=== PATIENT | female | born 1960 | race Caucasian/White ===

== ENCOUNTER 2017-05-28 08:13 | Emergency (ER) | payer OTHER ==
[2017-05-28] MEDS ORDERED: TORAdol 30 mg Injection IV ONE (09:10)
[2017-05-28] MEDS ORDERED: Pepcid 20 MG VIAL IV ONE ×2 (09:10→09:22)
--- NOTE | 2017-05-28 09:10 | ERPHSYRPT ---
- History of Present Illness Time Seen by Provider: 05/28/17 09:00 Historian: patient Exam Limitations: no limitations Patient Subjective Stated Complaint: chest pain at started last night at 2130 and states she woke up with chest still hurting this morning, pain is to epigastric area not radiating now but has radiated to neck and left are, some sob, no nausea. Triage Nursing Assessment: pt alert, walked in, resp easy, chest clear . no edema noted, skin w/d pink Physician History: The patient is a morbidly obese 57-year-old female who complains of worsening chest pain that began on Sunday (3 days ago). She denies shortness of breath. She denies nausea or vomiting. The chest pain had been intermittent for the first day but it has become more steady since yesterday. It hurts when she moves her arms straight up over her head. The pain is located in the lower middle part of her chest. She also has some pain in her left shoulder and left thumb. Her past medical history is significant for diabetes, depression, GERD, hypothyroidism, and hypertension. Her past surgical history is significant for cholecystectomy. Timing/Duration: day(s) (3), intermittent, worse Activities at Onset: none Quality: sharpness Location: substernal Chest Pain Radiation: no radiation Severity of Pain-Max: moderate Severity of Pain-Current: moderate Modifying Factors: Improves With: nothing Associated Symptoms: denies symptoms Prior Chest Pain/Cardiac Workup: no prior chest pain Nitro Today/Relief: no nitro taken today Aspirin Treatment Today: 325 mg x 1, provided at home (yesterday) Allergies/Adverse Reactions: Penicillins Allergy (Verified 05/28/17 08:24) Home Medications: Hydrochlorothiazide 12.5 mg PO DAILY 05/12/12 [History] Levothyroxine Sodium 50 mcg PO DAILY 05/12/12 [History] Loratadine 10 mg DAILY 05/12/12 [History] Venlafaxine HCl ER 75 mg [Effexor XR 75 MG] 225 mg PO DAILY 05/12/12 [History ] Metformin HCl 500 mg BID 05/28/17 [History] Naproxen 500 mg [Naprosyn 500 MG] 500 mg PO Q12H PRN PRN 05/28/17 [History] Hx Influenza Vaccination/Date Given: No Hx Pneumococcal Vaccination/Date Given: No Immunizations Up to Date: Yes - Review of Systems Constitutional: No Fever, No Chills Eyes: No Symptoms Ears, Nose, & Throat: No Symptoms Respiratory: No Cough, No Dyspnea Cardiac: Chest Pain Abdominal/Gastrointestinal: No Abdominal Pain, No Nausea, No Vomiting, No Diarrhea Genitourinary Symptoms: No Dysuria Musculoskeletal: No Back Pain, No Neck Pain Skin: No Rash Neurological: No Dizziness, No Focal Weakness, No Sensory Changes Psychological: No Symptoms Endocrine: No Symptoms Hematologic/Lymphatic: No Symptoms Immunological/Allergic: No Symptoms All Other Systems: Reviewed and Negative - Past Medical History Pertinent Past Medical History: Yes Neurological History: No Pertinent History ENT History: No Pertinent History Cardiac History: Hypertension Respiratory History: No Pertinent History Endocrine Medical History: Hypothyroidism Musculoskeletal History: No Pertinent History GI Medical History: No Pertinent History History: No Pertinent History Psycho-Social History: Depression Female Reproductive Disorders: No Pertinent History - Past Surgical History Past Surgical History: Yes Cardiac: No Pertinent History Respiratory: No Pertinent History Gastrointestinal: Cholecystectomy Other Surgical History: nose surgery - Social History Smoking Status: Never smoker Exposure to second hand smoke: No Drug Use: none Patient Lives Alone: No - Female History Hx Last Menstrual Period: post Hx Now: No - Nursing Vital Signs Nursing Vital Signs: Initial Vital Signs Temperature 97.8 F 05/28/17 08:22 Pulse Rate 78 05/28/17 08:22 Respiratory Rate 18 05/28/17 08:22 Blood Pressure 145/85 05/28/17 08:22 O2 Sat by Pulse Oximetry 98 05/28/17 08:22 Pain Scale Pain Intensity 10 - Physical Exam General Appearance: no apparent distress, alert Eye Exam: PERRL/EOMI, eyes nml inspection Ears, Nose, Throat Exam: normal ENT inspection, moist mucous membranes Neck Exam: normal inspection, non-tender, supple, full range of motion Respiratory Exam: normal breath sounds, chest tenderness (palpation of lower sternum reproduces pt's pain), lungs clear, No respiratory distress Cardiovascular Exam: regular rate/rhythm, normal heart sounds Gastrointestinal/Abdomen Exam: soft, No tenderness, No mass Pelvic Exam: not done Rectal Exam: not done Back Exam: normal inspection, No CVA tenderness, No vertebral tenderness Extremity Exam: normal inspection, normal range of motion Neurologic Exam: alert, oriented x 3, cooperative, normal mood/affect, sensation nml, No motor deficits Skin Exam: normal color, warm, dry SpO2 Interpretation: normal SpO2: 98 Oxygen Delivery: Room Air - Course EKG Interpreted by Me: RATE, Sinus Rhythm, NORMAL AXIS, NORMAL INTERVALS, NORMAL QRS, NORMAL ST-T, Other (no change compared to EKG on 05/13/12.) - Radiology Exams Chest X-ray Interpretation: Negative (Per Dr Whittaker.) Ordered Tests: Active Orders 24 hr Category Date Time Status EKG-ER Only STAT Care 05/28/17 09:10 Active IV Insertion STAT Care 05/28/17 09:10 Active CHEST 2 VIEWS (PA AND LAT) Stat Exams 05/28/17 09:11 Completed CBC W DIFF Stat Lab 05/28/17 08:45 Completed CMP Stat Lab 05/28/17 08:45 Completed TROPONIN Q3H Lab 05/28/17 08:45 Completed TROPONIN Q3H Lab 05/28/17 12:12 Received TROPONIN Q3H Lab 05/28/17 15:15 Ordered TROPONIN Q3H Lab 05/28/17 18:15 Ordered TROPONIN Q3H Lab 05/28/17 21:15 Ordered Medication Summary Discontinued Medications Generic Name Dose Route Start Last Admin Trade Name Freq PRN Reason Stop Dose Admin Al Hydrox/Mg Hydrox/Simethicone Confirm 05/28/17 11:10 Maalox Es 30 Ml Unit Dose Administered 05/28/17 11:11 Dose 30 ml .ROUTE .STK-MED ONE Famotidine 20 mg 05/28/17 09:10 05/28/17 09:23 Pepcid 20 Mg Vial IV 05/28/17 09:11 20 mg STAT ONE Administration Famotidine Confirm 05/28/17 09:22 Pepcid 20 Mg Vial Administered 05/28/17 09:23 Dose 20 mg IV .STK-MED ONE Ketorolac Tromethamine 30 mg 05/28/17 09:10 05/28/17 09:23 Toradol 30 Mg Injection IV 05/28/17 09:11 30 mg STAT ONE Administration Ketorolac Tromethamine Confirm 05/28/17 09:22 Toradol 30 Mg Injection Administered 05/28/17 09:23 Dose 30 mg .ROUTE .STK-MED ONE Lidocaine HCl Confirm 05/28/17 11:10 Xylocaine Hcl Viscous * Administered 05/28/17 11:11 Dose 15 ml .ROUTE .STK-MED ONE Magnesium Hydroxide 45 ml 05/28/17 11:05 05/28/17 11:13 Gi Cocktail 45 Ml (Maalox/Lidocaine) PO 05/28/17 11:06 45 ml STAT ONE Administration Potassium Chloride 40 meq 05/28/17 10:01 05/28/17 10:06 Klor Con 10 Meq PO 05/28/17 10:02 40 meq STAT ONE Administration Potassium Chloride Confirm 05/28/17 10:05 Klor Con 10 Meq Administered 05/28/17 10:06 Dose 40 meq PO .STK-MED ONE Lab/Rad Data: Laboratory Result Diagrams 05/28/17 08:45 05/28/17 08:45 Laboratory Results 05/28/17 05/28/17 05/28/17 Range/Units 08:45 08:45 08:45 WBC 5.1 (4.0-10.5) K/mm3 RBC 4.87 (4.1-5.4) M/mm3 Hgb 14.7 (12.0-16.0) gm/dl Hct 44.3 (35-47) % MCV 91.0 (78-100) fl MCH 30.2 (26-32) pg MCHC 33.2 (32-36) g/dl RDW 12.8 (11.5-14.0) % Plt Count 240 (150-450) K/mm3 MPV 8.9 (6-9.5) fl Gran % 51.2 (36.0-66.0) % Lymphocytes % 34.2 (24.0-44.0) % Monocytes % 6.6 (0.0-12.0) % Eosinophils % 7.2 H (0.00-5.0) % Basophils % 0.8 (0.0-0.4) % Basophils # 0.04 (0-0.4) Sodium 144 (136-145) mEq/L Potassium 3.2 L (3.5-5.1) mEq/L Chloride 105 (98-107) mEq/L Carbon Dioxide 30.9 (21-32) mEq/L Anion Gap 11.3 (5-15) MEQ/L BUN 9 (9-20) mg/dL Creatinine 1.02 (0.55-1.30) mg/dl Estimated GFR 60 ML/MIN Glucose 132 H (70-110) MG/DL Calcium 9.3 (8.5-10.1) mg/dL Total Bilirubin 0.40 (0.2-1.0) mg/dL AST 19 (15-37) U/L ALT 24 (12-78) U/L Alkaline Phosphatase 96 (46-116) U/L Troponin I < 0.017 (0.000-0.056) ng/ml Serum Total Protein 7.3 (6.4-8.2) gm/dL Albumin 3.8 (3.4-5.0) g/dL - Progress Progress: improved Air Movement: good Progress Note: 05/28/17 12:18 The patient was given Pepcid 20 mg and Toradol 30 mg by IV. Patient states her pain slightly worsened. The patient was then given a GI cocktail. The pain was significantly relieved with this treatment. Blood Culture(s) Obtained: No Antibiotics given: No Counseled pt/family regarding: lab results, diagnosis, need for follow-up, rad results - Departure Time of Disposition: 12:19 Departure Disposition: Home Clinical Impression: Gastritis, Hypokalemia Condition: Stable Critical Care Time: No Referrals: CANDACE CARMONA FNP [Primary Care Provider] - Additional Instructions: You have gastritis and low potassium. You were given Pepcid 20 mg and Toradol 30 mg IV in the ER. You were then given a GI cocktail and potassium 40 mEq. Take Carafate 1 g 4 times a day. Follow-up this week with your primary care doctor for evaluation of possible H. pylori infection. Prescriptions: Sucralfate [Carafate] 1 gm PO QID #400 ml
[2017-05-28 09:22] LABS: BASOPHIL % 0.8 % (0.0-0.4); Eosinophil % 7.2 % (0.00-5.0); Granulocytes % 51.2 % (36.0-66.0); Lymphocytes % 34.2 % (24.0-44.0); Mean Corpuscular Hemoglobin 30.2 pg (26-32); Mean Platelet Volume 8.9 fl (6-9.5); Monocytes % 6.6 % (0.0-12.0); Platelet Count 240 K/mm3 (150-450); Red Blood Count 4.87 M/mm3 (4.1-5.4); Red Cell Distribution Width 12.8 % (11.5-14.0); White Blood Count 5.1 K/mm3 (4.0-10.5)
[2017-05-28] MEDS ORDERED: TORAdol 30 mg Injection ONE (09:22)
[2017-05-28 09:36] LABS: ALBUMIN 3.8 g/dL (3.4-5.0); ANION GAP 11.3 MEQ/L (5-15); BILIRUBIN,TOTAL 0.4 mg/dL (0.2-1.0); Carbon Dioxide 30.9 mEq/L (21-32); Potassium 3.2 mEq/L (3.5-5.1); Total Protein 7.3 gm/dL (6.4-8.2)
--- NOTE | 2017-05-28 09:48 | XRAY ---
Indication: Chest pain for 3 days. Comparison: May 12, 2012. PA/lateral chest again demonstrates normal heart, lungs, and bony thorax with stable left apical calcified granuloma.
[2017-05-28] MEDS ORDERED: Klor Con 10 MEQ PO ONE ×2 (10:01→10:05)
[2017-05-28] MEDS ORDERED: GI COCKTAIL 45 ML (Maalox/Lidocaine) PO ONE (11:05)
[2017-05-28] MEDS ORDERED: MAALOX ES 30 ML UNIT DOSE ONE (11:10)
[2017-05-28] MEDS ORDERED: XYLOCAINE HCl Viscous ONE (11:10)
[2017-05-28 12:19] VITALS: BP 132/70; PULSE 78
[2017-05-28 12:23] VITALS: O2SAT 98
== END 2017-05-28 12:33 | disposition home or self-care (01) ==
LOC: ED 08:13
DX: K29.70 Gastritis, unspecified, without bleeding (principal); E87.6 Hypokalemia; R10.13 Epigastric pain; E11.9 Type 2 diabetes mellitus without complications; E03.9 Hypothyroidism, unspecified; I10 Essential (primary) hypertension; Z79.899 Other long term (current) drug therapy; Z79.84 Long term (current) use of oral hypoglycemic drugs; R07.9 Chest pain, unspecified
CPT/HCPCS: 36000; 36415; 71020; 80053; 84484; 85025; 93005; 96374; 96375; 99284; J1885; A9270-GY

== ENCOUNTER 2019-09-18 10:41 | Observation (INO) | payer OTHER ==
[2019-09-18] MEDS ORDERED: ZOFRAN ODT 4 MG PO ONE (12:09)
[2019-09-18] MEDS ORDERED: MORPHINE SULFATE 4 MG INJ IV ONE (12:09)
[2019-09-18] MEDS ORDERED: Zofran 4 MG/2 ML VIAL IV ONE (12:15)
[2019-09-18] MEDS ORDERED: MORPHINE SULFATE 4 MG INJ ONE (12:16)
[2019-09-18] MEDS ORDERED: Zofran 4 MG/2 ML VIAL ONE (12:16)
[2019-09-18 12:24] LABS: Absolute Neutrophil Ct (ANC) 3.24 (1.4-6.9); BASOPHIL % 0.5 % (0.0-0.4); Basophil (Absolute #) 0.03 (0-0.4); Eosinophil % 5.8 % (0.00-5.0); Eosinophil (Absolute #) 0.32 (0-0.5); Hematocrit 46.8 % (35-47); Hemoglobin 15.6 gm/dl (12.0-16.0); Lymphocyte (Absolute #) 1.58 (1.0-4.6); Lymphocytes % 28.4 % (24.0-44.0); Mean Cell Volume 91.6 fl (78-100); Mean Corpuscular Hemoglobin 30.5 pg (26-32); Mean Corpuscular Hgb Concent. 33.3 g/dl (32-36); Mean Platelet Volume 8.8 fl (7.5-11.0); Monocyte (Absolute #) 0.39 (0.0-1.3); Neutrophil % 58.3 % (36.0-66.0); Platelet Count 221 K/mm3 (150-450); Red Blood Count 5.11 M/mm3 (4.1-5.4); White Blood Count 5.6 K/mm3 (4.0-10.5)
[2019-09-18 12:39] LABS: ALBUMIN 4.5 g/dL (3.5-5.0); ANION GAP 14.1 MEQ/L (5-15); BILIRUBIN,TOTAL 0.7 mg/dL (0.2-1.3); Calcium 9.7 mg/dL (8.4-10.2); Creatinine 1 1.03 mg/dL (0.52-1.04); Potassium 3.7 mmol/L (3.5-5.1); Total Protein 8.1 g/dL (6.3-8.2)
--- NOTE | 2019-09-18 12:48 | ERPHSYRPT ---
- History of Present Illness Time Seen by Provider: 09/18/19 11:13 Source: patient Exam Limitations: no limitations Patient Subjective Stated Complaint: pt here for pain to head,neck, left shoulder since last sat. no truama. pt state she has had banerjee like this before, pt has hx of chronic pain Triage Nursing Assessment: pt alert, arrived per wc, skin w/d/p. resp easy, chest clear, abd soft Physician History: 59 years old female with history of hypertension, hyperlipidemia, fibromyalgia, migraines this ended the ER from primary care office with chief complaint of 5 days history of continuous dull aching sharp moderate intensity headache without any significant aggravating or relieving factors and neck pain for 3 days along left-sided. Patient described a dull pressure sensation in the left chest with radiation to left arm, more in density but no significant aggravating or relieving factors, not associated with any shortness of breath or palpitations. Patient does have a history of migraine headaches not any different than usual. Patient states she has neck pain part of her fibromyalgia. She denies any weakness in upper or lower extremities. She does have carpal tunnel symptoms in left hand/wrist that goes to sleep/tingling sensation at night and gets better with jerking movements of the hand. She does not have any tingling or numbness in the hand at present. No abdominal pain nausea or vomiting. He does not have any history of coronary artery disease but has strong family history. No cardiac workup done in the recent past. Severity: moderate Modifying Factors: Improves With: movement Associated Symptoms: chest pain, No vomiting, No abdominal pain, No shortness of breath, No heartburn, No cough Allergies/Adverse Reactions: Penicillins Allergy (Verified 09/18/19 11:28) Home Medications: Hydrochlorothiazide 12.5 mg PO DAILY 05/12/12 [History] Levothyroxine Sodium 50 mcg PO DAILY 05/12/12 [History] Loratadine 10 mg DAILY 05/12/12 [History] Venlafaxine HCl ER 75 mg [Effexor XR 75 MG] 225 mg PO DAILY 05/12/12 [History ] Metformin HCl 500 mg BID 05/28/17 [History] Naproxen 500 mg [Naprosyn 500 MG] 500 mg PO Q12H PRN PRN 05/28/17 [History] Hx Influenza Vaccination/Date Given: No Hx Pneumococcal Vaccination/Date Given: No Immunizations Up to Date: Yes - Review of Systems Constitutional: Malaise Eyes: No Symptoms Ears, Nose, & Throat: No Symptoms Respiratory: No Symptoms Cardiac: Chest Pain Abdominal/Gastrointestinal: No Symptoms Genitourinary Symptoms: No Symptoms Musculoskeletal: Neck Pain, No Injury Skin: No Symptoms Neurological: Headache, No Focal Weakness, No Gait Changes, No Paralysis, No Parasthesia, No Seizure, No Sensory Changes Psychological: No Symptoms Endocrine: No Symptoms Hematologic/Lymphatic: No Symptoms Immunological/Allergic: No Symptoms - Past Medical History Pertinent Past Medical History: Yes Neurological History: No Pertinent History ENT History: No Pertinent History Cardiac History: Hypertension Respiratory History: No Pertinent History Endocrine Medical History: Hypothyroidism Musculoskeletal History: No Pertinent History GI Medical History: No Pertinent History History: No Pertinent History Psycho-Social History: Depression Female Reproductive Disorders: No Pertinent History - Past Surgical History Past Surgical History: Yes Cardiac: No Pertinent History Respiratory: No Pertinent History Gastrointestinal: Cholecystectomy Other Surgical History: nose surgery - Social History Smoking Status: Never smoker Exposure to second hand smoke: No Drug Use: none Patient Lives Alone: No - Female History Hx Last Menstrual Period: post Hx Now: No - Nursing Vital Signs Nursing Vital Signs: Initial Vital Signs Temperature 97.2 F 09/18/19 11:37 Pulse Rate 90 09/18/19 11:37 Blood Pressure 139/100 09/18/19 11:37 O2 Sat by Pulse Oximetry 96 09/18/19 11:37 Pain Scale Pain Intensity 5 - Physical Exam General Appearance: no apparent distress Eye Exam: PERRL/EOMI, eyes nml inspection Ears, Nose, Throat Exam: normal ENT inspection, TMs normal, pharynx normal Neck Exam: normal inspection, supple, full range of motion, other (muscular tenderness no midline tenderness) Respiratory Exam: normal breath sounds, lungs clear, respiratory distress Cardiovascular Exam: regular rate/rhythm, normal heart sounds Gastrointestinal/Abdomen Exam: soft, normal bowel sounds, No tenderness, No distention Back Exam: normal inspection, normal range of motion, No CVA tenderness Extremity Exam: normal inspection Neurologic Exam: alert, oriented x 3, cooperative, global cto II-XII nml as tested, normal mood/affect, nml cerebellar function, nml station & gait, sensation nml Skin Exam: normal color SpO2 Interpretation: normal SpO2: 94 O2 Delivery: Room Air - Course Nursing assessment & vital signs reviewed: Yes EKG Interpreted by Me: RATE (89), Sinus Rhythm, NORMAL AXIS, Q-wave (inf leads) Ordered Tests: Active Orders 24 hr Category Date Time Status Financial Aid Manager STAT Care 09/18/19 12:08 Active EKG-ER Only STAT Care 09/18/19 12:07 Active IV Insertion STAT Care 09/18/19 12:07 Active NPO (ED) STAT Care 09/18/19 12:08 Active Pulse Oximetry (ED) STAT Care 09/18/19 12:07 Active CERVICAL SPINE WO CONTRAST [CT] Stat Exams 09/18/19 13:34 Ordered CHEST 1 VIEW (PORTABLE) Stat Exams 09/18/19 12:08 Completed HEAD WITHOUT CONTRAST [CT] Stat Exams 09/18/19 12:08 Completed CBC W DIFF Stat Lab 09/18/19 12:15 Completed CMP Stat Lab 09/18/19 12:15 Completed TROPONIN Q3H Lab 09/18/19 12:15 Completed TROPONIN Q3H Lab 09/18/19 15:15 Ordered TROPONIN Q3H Lab 09/18/19 18:15 Ordered TROPONIN Q3H Lab 09/18/19 21:15 Ordered TROPONIN Q3H Lab 09/19/19 00:15 Ordered Transfer Order Routine Transfer 09/18/19 Ordered Medication Summary Discontinued Medications Generic Name Dose Route Start Last Admin Trade Name Freq PRN Reason Stop Dose Admin Morphine Sulfate 4 mg 09/18/19 12:09 09/18/19 12:29 Morphine Sulfate 4 Mg Inj IV 09/18/19 12:10 4 mg STAT ONE Administration Morphine Sulfate Confirm 09/18/19 12:16 Morphine Sulfate 4 Mg Inj Administered 09/18/19 12:17 Dose 4 mg .ROUTE .STK-MED ONE Ondansetron HCl 4 mg 09/18/19 12:09 09/18/19 12:15 Zofran Odt 4 Mg PO 09/18/19 12:10 Not Given STAT ONE Ondansetron HCl 4 mg 09/18/19 12:15 09/18/19 12:29 Zofran 4 Mg/2 Ml Vial IV 09/18/19 12:16 4 mg STAT ONE Administration Ondansetron HCl Confirm 09/18/19 12:16 Zofran 4 Mg/2 Ml Vial Administered 09/18/19 12:17 Dose 4 mg .ROUTE .STK-MED ONE Lab/Rad Data: Laboratory Result Diagrams 09/18/19 12:15 09/18/19 12:15 Laboratory Results 09/18/19 09/18/19 09/18/19 Range/Units 12:15 12:15 12:15 WBC 5.6 (4.0-10.5) K/mm3 RBC 5.11 (4.1-5.4) M/mm3 Hgb 15.6 (12.0-16.0) gm/dl Hct 46.8 (35-47) % MCV 91.6 (78-100) fl MCH 30.5 (26-32) pg MCHC 33.3 (32-36) g/dl RDW 13.0 (11.5-14.0) % Plt Count 221 (150-450) K/mm3 MPV 8.8 (7.5-11.0) fl Gran % 58.3 (36.0-66.0) % Eos # (Auto) 0.32 (0-0.5) Absolute Lymphs (auto) 1.58 (1.0-4.6) Absolute Monos (auto) 0.39 (0.0-1.3) Lymphocytes % 28.4 (24.0-44.0) % Monocytes % 7.0 (0.0-12.0) % Eosinophils % 5.8 H (0.00-5.0) % Basophils % 0.5 (0.0-0.4) % Absolute Granulocytes 3.24 (1.4-6.9) Basophils # 0.03 (0-0.4) Sodium 141 (137-145) mmol/L Potassium 3.7 (3.5-5.1) mmol/L Chloride 99 (98-107) mmol/L Carbon Dioxide 31 H (22-30) mmol/L Anion Gap 14.1 (5-15) MEQ/L BUN 17 (7-17) mg/dL Creatinine 1.03 (0.52-1.04) mg/dL Estimated GFR 58.5 ML/MIN Glucose 122 H (74-106) mg/dL Calcium 9.7 (8.4-10.2) mg/dL Total Bilirubin 0.70 (0.2-1.3) mg/dL AST 54 H (14-36) U/L ALT 35 (0-35) U/L Alkaline Phosphatase 75 (38-126) U/L Troponin I < 0.012 (0.000-0.034) ng/mL Serum Total Protein 8.1 (6.3-8.2) g/dL Albumin 4.5 (3.5-5.0) g/dL - Progress Progress: improved, pain not gone completely, re-examined Progress Note: 51 he is always evaluated for a headache, neck pain and left-sided chest pain. She is given symptomatic treatment here, and evaluation of headache and neck pain is much improved but still had some pressure/headache. She is given a full dose aspirin after her CT head is negative. Negative initial troponin and EKG did not show any acute ischemic changes. Patient has multiple risk factors for coronary artery disease and has not any workup done in the past. Discussed with Dr. Moreno and patient is being admitted for chest pain rule out. She was also complaining of neck pain at Dr. Moreno's office and will obtain CT cervical spine as well. 09/18/19 13:40 Discussed with : Brandon Will see patient in: hospital (observation) Counseled pt/family regarding: lab results, diagnosis, rad results - Departure Departure Disposition: Observation Clinical Impression: Chest pain, rule out acute myocardial infarction Migraine Qualifiers: Migraine type: unspecified Status migrainosus presence: without status migrainosus Intractability: not intractable Qualified Code(s): G43.909 - Migraine, unspecified, not intractable, without status migrainosus Condition: Stable Critical Care Time: No Referrals: CANDACE CARMONA FNP [Primary Care Provider] -
--- NOTE | 2019-09-18 12:49 | XRAY ---
Indication: Chest pain. Comparison: May 28, 2017. Portable chest again demonstrates normal heart, lungs, and bony thorax with stable left apical calcified granuloma.
--- NOTE | 2019-09-18 12:51 | XRAY ---
Indication: Migraine headaches. No known injury. Multiple contiguous axial images obtained through the head without contrast. Comparison: None Normal appearing brain parenchyma, ventricles, and bony calvarium. Visualized paranasal sinuses and mastoid air cells are clear. Impression: Normal CT head without contrast exam.
[2019-09-18] MEDS ORDERED: BABY ASPIRIN 81 MG CHEW PO ONE (13:41)
[2019-09-18] MEDS ORDERED: BABY ASPIRIN 81 MG CHEW ONE (13:50)
[2019-09-18] MEDS ORDERED: Senokot-S Tablet PO PRN (14:13)
[2019-09-18] MEDS ORDERED: MAALOX ES 30 ML UNIT DOSE PO PRN (14:13)
[2019-09-18] MEDS ORDERED: MILK OF MAGNESIA 30 ML PO PRN (14:13)
[2019-09-18] MEDS ORDERED: NovoLOG Insulin SQ PRN (14:13)
[2019-09-18] MEDS ORDERED: TYLENOL 325 MG PO PRN (14:13)
[2019-09-18] MEDS ORDERED: Zofran 4 MG/2 ML VIAL IV PRN (14:13)
--- NOTE | 2019-09-18 14:20 | XRAY ---
Indication: Neck and left shoulder pain. Migraine headaches 5 days. Multiple contiguous axial images obtained through the cervical spine. Sagittal and coronal reformatted images obtained. Comparison: None Axial images negative for acute fracture, suspicious bony lesions, or spinal canal stenosis. Minimal/mild C4-C7 degenerative endplate spurring. C5-C7 foraminal narrowing left greater than right due to uncovertebral spurring. Sagittal and coronal reformatted images demonstrates cervical lordotic straightening, positional versus paraspinal spasm. Mild C5-C7 disc space narrowing. No acute compression fracture, subluxation, or jumped facet facet. Normal appearing craniocervical junction. Visualized noncontrasted soft tissues including lung apices are unremarkable. Impression: 1. Cervical lordotic straightening, positional versus paraspinal spasm. 2. C4-C7 degenerative changes. 3. Remaining CT cervical spine is negative.
[2019-09-18] MEDS: Klor Con 10 MEQ PO SCH (16:51)
[2019-09-18] MEDS: CLARITIN 10 MG PO SCH (16:52)
[2019-09-18] MEDS: Cozaar 50 MG PO SCH (16:52)
[2019-09-18] MEDS: hydroDIURIL 25 MG PO SCH (16:53)
[2019-09-18] MEDS: Glucotrol 5 MG PO SCH (16:57)
[2019-09-18] MEDS ORDERED: NON-FORMULARY ITEM (Omeprazole [Omeprazole] 20 MG) PO SCH (22:00)
[2019-09-18] MEDS ORDERED: TOPIRAMATE PO SCH (22:00)
[2019-09-18] MEDS ORDERED: NON-FORMULARY ITEM (Rosuvastatin Calcium [Rosuvastatin Calcium] 10 MG) PO SCH (22:00)
[2019-09-18] MEDS ORDERED: ZOCOR 20MG PO SCH (22:00)
[2019-09-18] MEDS ORDERED: Protonix 40MG Tablet PO SCH (22:00)
[2019-09-18] MEDS ORDERED: NEURONTIN 300 MG PO SCH (22:00)
[2019-09-19 06:44] LABS: Risk Ratio 4.3
[2019-09-19] MEDS ORDERED: MOTRIN 400 MG PO PRN (09:00)
--- NOTE | 2019-09-19 09:04 | PCM.SSS ---
History of Present Illness - Chief Complaint Chief Complaint: Migraine Headache, Chest pain, Fatigue Date: 09/19/19 History of Present Illness: is a 59 year old female. presented to office yesterday with left side migraine since Sunday. Pt. notes nausea with no vomiting but does note light sensitivity. Pt. notes that Sunday noted a full pain in the neck and then progressed over the next day or 2 into the left arm, left upper chest and left upper back region. Pt. notes fatigue the past couple of years and in general just does not feel well. Pt. notes history of fibromyalgia and previous mononucleosis infection. - Review of Systems Constitutional: No Fever, No Chills Eyes: No Symptoms Ears, Nose, & Throat: No Symptoms Respiratory: No Cough, No Short Of Breath Cardiac: Chest Pain Abdominal/Gastrointestinal: Nausea Genitourinary Symptoms: Urgency Musculoskeletal: Arthralgias, Neck Pain, Myalgias Skin: No Rash Neurological: Headache Endocrine: No Symptoms Hematologic/Lymphatic: No Symptoms Immunological/Allergic: No Symptoms Medications & Allergies Home Medications: Home Medication List Levothyroxine Sodium 50 mcg PO DAILY 05/12/12 [History Confirmed 09/18/19] Loratadine 10 mg PO LUNCH 05/12/12 [History Confirmed 09/18/19] Gabapentin [Neurontin] 300 mg PO HS 09/18/19 [History Confirmed 09/18/19] Glipizide 5 mg [Glucotrol 5 MG] 5 mg PO BID 09/18/19 [History Confirmed ] Losartan Potassium 25 mg PO LUNCH 09/18/19 [History Confirmed 09/18/19] Meloxicam 7.5 mg [Mobic 7.5 MG] 7.5 mg PO BID 09/18/19 [History Confirmed 09/18/19] Omeprazole 20 mg PO HS 09/18/19 [History Confirmed 09/18/19] Potassium Chloride 10 Meq Tab* [Klor Con 10 MEQ] 20 meq PO LUNCH 09/18/19 [ History Confirmed 09/18/19] Rosuvastatin Calcium 10 mg PO HS 09/18/19 [History Confirmed 09/18/19] Topiramate 50 mg PO HS 09/18/19 [History Confirmed 09/18/19] hydroCHLOROthiazide [Hydrochlorothiazide] 12.5 mg PO LUNCH 09/18/19 [History Confirmed 09/18/19] Allergies/Adverse Reactions: Allergies Allergy/AdvReac Type Severity Reaction Status Date / Time Penicillins Allergy Verified 09/18/19 11:28 - Past Medical History Past Medical History: Yes Neurological History: Other ENT History: No Pertinent History Cardiac History: Hypertension Respiratory History: No Pertinent History Endocrine Medical History: Diabetes Type II, Hypothyroidism Musculoskelatal History: Arthritis, Fibromyalgia GI Medical History: No Pertinent History History: No Pertinent History Pyscho-Social History: Depression Reproductive Disorders: No Pertinent History Comment: niyah sibley, migraines - Female History Hx Last Menstrual Period: post Are you now?: No - Past Surgical History Past Surgical History: Yes Neuro Surgical History: No Pertinent History Cardiac History: No Pertinent History Respiratory Surgery: No Pertinent History GI Surgical History: Cholecystectomy Genitourinary Surgical Hx: No Pertinent History Musculskeletal Surgical Hx: No Pertinent History Female Surgical History: Dilation & Curettage Other Surgical History: nose surgery - Social History Smoking Status: Never smoker Exposure to second hand smoke: No Alcohol: None Drug Use: none - Physical Exam Vital Signs: Vital Signs - 24 hr Temp Pulse Resp BP Pulse Ox 09/19/19 07:25 97.3 F 71 18 100/57 97 09/19/19 01:52 96 09/18/19 22:00 97 09/18/19 18:13 97 09/18/19 17:40 98 F 09/18/19 16:50 97.6 F 68 18 132/65 97 09/18/19 16:25 97.6 F 68 18 132/65 97 09/18/19 14:50 97.7 F 68 18 132/65 97 09/18/19 14:38 97.7 F 68 18 132/65 97 09/18/19 14:15 97.7 F 68 18 132/65 97 09/18/19 14:13 97.7 F 68 18 132/65 97 09/18/19 13:41 94 L 09/18/19 12:31 80 16 117/71 94 L 09/18/19 12:15 98 09/18/19 12:04 93 H 18 114/78 09/18/19 11:37 97.2 F 90 139/100 96 General Appearance: no apparent distress Neurologic Exam: alert, cooperative Eye Exam: eyes nml inspection Ears, Nose, Throat Exam: normal ENT inspection Neck Exam: normal inspection Respiratory Exam: normal breath sounds Cardiovascular Exam: regular rate/rhythm Gastrointestinal/Abdomen Exam: soft, normal bowel sounds, No tenderness Pelvic Exam: not done Rectal Exam: deferred Extremity Exam: normal inspection Skin Exam: normal color, warm, dry Lymphatic Exam: No adenopathy Results - Labs Lab/Micro Results: Accuchecks Date 09/19/19 Date 09/18/19 Date 09/18/19 Time 07:30 Time 20:30 Time 16:30 Accucheck Value: 117 Accucheck Value: 157 Accucheck Value: 132 Lab Results-Last 24 Hours 09/18/19 09/18/19 09/18/19 Range/Units 12:15 12:15 12:15 WBC 5.6 (4.0-10.5) K/mm3 RBC 5.11 (4.1-5.4) M/mm3 Hgb 15.6 (12.0-16.0) gm/dl Hct 46.8 (35-47) % MCV 91.6 (78-100) fl MCH 30.5 (26-32) pg MCHC 33.3 (32-36) g/dl RDW 13.0 (11.5-14.0) % Plt Count 221 (150-450) K/mm3 MPV 8.8 (7.5-11.0) fl Gran % 58.3 (36.0-66.0) % Eos # (Auto) 0.32 (0-0.5) Absolute Lymphs (auto) 1.58 (1.0-4.6) Absolute Monos (auto) 0.39 (0.0-1.3) Lymphocytes % 28.4 (24.0-44.0) % Monocytes % 7.0 (0.0-12.0) % Eosinophils % 5.8 H (0.00-5.0) % Basophils % 0.5 (0.0-0.4) % Absolute Granulocytes 3.24 (1.4-6.9) Basophils # 0.03 (0-0.4) Sodium 141 (137-145) mmol/L Potassium 3.7 (3.5-5.1) mmol/L Chloride 99 (98-107) mmol/L Carbon Dioxide 31 H (22-30) mmol/L Anion Gap 14.1 (5-15) MEQ/L BUN 17 (7-17) mg/dL Creatinine 1.03 (0.52-1.04) mg/dL Estimated GFR 58.5 ML/MIN Glucose 122 H (74-106) mg/dL Calcium 9.7 (8.4-10.2) mg/dL Total Bilirubin 0.70 (0.2-1.3) mg/dL AST 54 H (14-36) U/L ALT 35 (0-35) U/L Alkaline Phosphatase 75 (38-126) U/L Troponin I < 0.012 (0.000-0.034) ng/mL Serum Total Protein 8.1 (6.3-8.2) g/dL Albumin 4.5 (3.5-5.0) g/dL Triglycerides (30-150) mg/dL Cholesterol (50-200) mg/dL LDL Cholesterol (30-100) mg/dL HDL Cholesterol (40-60) mg/dL Heart Disease Risk Ratio 09/18/19 09/18/19 09/18/19 Range/Units 15:30 19:30 21:47 WBC (4.0-10.5) K/mm3 RBC (4.1-5.4) M/mm3 Hgb (12.0-16.0) gm/dl Hct (35-47) % MCV (78-100) fl MCH (26-32) pg MCHC (32-36) g/dl RDW (11.5-14.0) % Plt Count (150-450) K/mm3 MPV (7.5-11.0) fl Gran % (36.0-66.0) % Eos # (Auto) (0-0.5) Absolute Lymphs (auto) (1.0-4.6) Absolute Monos (auto) (0.0-1.3) Lymphocytes % (24.0-44.0) % Monocytes % (0.0-12.0) % Eosinophils % (0.00-5.0) % Basophils % (0.0-0.4) % Absolute Granulocytes (1.4-6.9) Basophils # (0-0.4) Sodium (137-145) mmol/L Potassium (3.5-5.1) mmol/L Chloride (98-107) mmol/L Carbon Dioxide (22-30) mmol/L Anion Gap (5-15) MEQ/L BUN (7-17) mg/dL Creatinine (0.52-1.04) mg/dL Estimated GFR ML/MIN Glucose (74-106) mg/dL Calcium (8.4-10.2) mg/dL Total Bilirubin (0.2-1.3) mg/dL AST (14-36) U/L ALT (0-35) U/L Alkaline Phosphatase (38-126) U/L Troponin I < 0.012 < 0.012 < 0.012 (0.000-0.034) ng/mL Serum Total Protein (6.3-8.2) g/dL Albumin (3.5-5.0) g/dL Triglycerides (30-150) mg/dL Cholesterol (50-200) mg/dL LDL Cholesterol (30-100) mg/dL HDL Cholesterol (40-60) mg/dL Heart Disease Risk Ratio 09/19/19 09/19/19 Range/Units 05:00 05:00 WBC (4.0-10.5) K/mm3 RBC (4.1-5.4) M/mm3 Hgb (12.0-16.0) gm/dl Hct (35-47) % MCV (78-100) fl MCH (26-32) pg MCHC (32-36) g/dl RDW (11.5-14.0) % Plt Count (150-450) K/mm3 MPV (7.5-11.0) fl Gran % (36.0-66.0) % Eos # (Auto) (0-0.5) Absolute Lymphs (auto) (1.0-4.6) Absolute Monos (auto) (0.0-1.3) Lymphocytes % (24.0-44.0) % Monocytes % (0.0-12.0) % Eosinophils % (0.00-5.0) % Basophils % (0.0-0.4) % Absolute Granulocytes (1.4-6.9) Basophils # (0-0.4) Sodium (137-145) mmol/L Potassium (3.5-5.1) mmol/L Chloride (98-107) mmol/L Carbon Dioxide (22-30) mmol/L Anion Gap (5-15) MEQ/L BUN (7-17) mg/dL Creatinine (0.52-1.04) mg/dL Estimated GFR ML/MIN Glucose (74-106) mg/dL Calcium (8.4-10.2) mg/dL Total Bilirubin (0.2-1.3) mg/dL AST (14-36) U/L ALT (0-35) U/L Alkaline Phosphatase (38-126) U/L Troponin I < 0.012 (0.000-0.034) ng/mL Serum Total Protein (6.3-8.2) g/dL Albumin (3.5-5.0) g/dL Triglycerides 168 H (30-150) mg/dL Cholesterol 126 (50-200) mg/dL LDL Cholesterol 74 (30-100) mg/dL HDL Cholesterol 30 L (40-60) mg/dL Heart Disease Risk Ratio 4.3 Accuchecks Date 09/19/19 Date 09/18/19 Date 09/18/19 Time 07:30 Time 20:30 Time 16:30 Accucheck Value: 117 Accucheck Value: 157 Accucheck Value: 132 - Radiology Impressions Radiology Exams & Impressions: Radiology Procedures Category Date Time Status CERVICAL SPINE WO CONTRAST [CT] Stat Exams 09/18/19 13:34 Completed CHEST 1 VIEW (PORTABLE) Stat Exams 09/18/19 12:08 Completed HEAD WITHOUT CONTRAST [CT] Stat Exams 09/18/19 12:08 Completed - Other Procedures and Tests Respiratory Therapy 09/20/19 05:00 EKG ONCE 09/21/19 05:00 EKG ONCE 09/22/19 08:56 Cardiolite Stress Test-RT ONCE Sleep Study With 4 or More Par ONCE Assessment/Plan (1) Chest pain, rule out acute myocardial infarction Current Visit: Yes Status: Acute Assessment & Plan: serial troponins Code(s): R07.9 - CHEST PAIN, UNSPECIFIED (2) Migraine Current Visit: Yes Status: Acute Qualifiers: Migraine type: unspecified Status migrainosus presence: without status migrainosus Intractability: not intractable Qualified Code(s): G43.909 - Migraine, unspecified, not intractable, without status migrainosus Assessment & Plan: general treatment for headache and CT scan Code(s): G43.909 - MIGRAINE, UNSP, NOT INTRACTABLE, WITHOUT STATUS MIGRAINOSUS Hospital Summary - Hospital Course Hospital Course: Pt. admitted and labs obtained. Pt. negative cardiac work-up, cxr negative, ct head negative, electrolytes and hgb all normal. Pt. notes some headache persists along with the vague chest wall pain, after discussion with the patient we will add U/A, TSH, and D-dimer. Pending these negative I do not feel further hospitalization is of benefit for the patient, I will also order an outpatient cardiac stress test and overnight sleep study to further evaluate the fatigue symptoms. - Vitals & Intake/Output Vital Signs: Vital Signs Temperature 97.3 F 09/19/19 07:25 Pulse Rate 71 09/19/19 07:25 Respiratory Rate 18 09/19/19 07:25 Blood Pressure 100/57 09/19/19 07:25 O2 Sat by Pulse Oximetry 97 09/19/19 07:25 Intake & Output: Intake & Output 09/16/19 09/17/19 09/18/19 09/19/19 11:59 11:59 11:59 11:59 Intake Total 480 Output Total 700 Balance -220 Weight 11.793 kg 121.8 kg - Lab Result Diagrams: 09/18/19 12:15 09/18/19 12:15 Lab Results-Last 24 Hrs: Accuchecks Date 09/19/19 Date 09/18/19 Date 09/18/19 Time 07:30 Time 20:30 Time 16:30 Accucheck Value: 117 Accucheck Value: 157 Accucheck Value: 132 Lab Results-Last 24 Hours 09/18/19 09/18/19 09/18/19 Range/Units 12:15 12:15 12:15 WBC 5.6 (4.0-10.5) K/mm3 RBC 5.11 (4.1-5.4) M/mm3 Hgb 15.6 (12.0-16.0) gm/dl Hct 46.8 (35-47) % MCV 91.6 (78-100) fl MCH 30.5 (26-32) pg MCHC 33.3 (32-36) g/dl RDW 13.0 (11.5-14.0) % Plt Count 221 (150-450) K/mm3 MPV 8.8 (7.5-11.0) fl Gran % 58.3 (36.0-66.0) % Eos # (Auto) 0.32 (0-0.5) Absolute Lymphs (auto) 1.58 (1.0-4.6) Absolute Monos (auto) 0.39 (0.0-1.3) Lymphocytes % 28.4 (24.0-44.0) % Monocytes % 7.0 (0.0-12.0) % Eosinophils % 5.8 H (0.00-5.0) % Basophils % 0.5 (0.0-0.4) % Absolute Granulocytes 3.24 (1.4-6.9) Basophils # 0.03 (0-0.4) Sodium 141 (137-145) mmol/L Potassium 3.7 (3.5-5.1) mmol/L Chloride 99 (98-107) mmol/L Carbon Dioxide 31 H (22-30) mmol/L Anion Gap 14.1 (5-15) MEQ/L BUN 17 (7-17) mg/dL Creatinine 1.03 (0.52-1.04) mg/dL Estimated GFR 58.5 ML/MIN Glucose 122 H (74-106) mg/dL Calcium 9.7 (8.4-10.2) mg/dL Total Bilirubin 0.70 (0.2-1.3) mg/dL AST 54 H (14-36) U/L ALT 35 (0-35) U/L Alkaline Phosphatase 75 (38-126) U/L Troponin I < 0.012 (0.000-0.034) ng/mL Serum Total Protein 8.1 (6.3-8.2) g/dL Albumin 4.5 (3.5-5.0) g/dL Triglycerides (30-150) mg/dL Cholesterol (50-200) mg/dL LDL Cholesterol (30-100) mg/dL HDL Cholesterol (40-60) mg/dL Heart Disease Risk Ratio 09/18/19 09/18/19 09/18/19 Range/Units 15:30 19:30 21:47 WBC (4.0-10.5) K/mm3 RBC (4.1-5.4) M/mm3 Hgb (12.0-16.0) gm/dl Hct (35-47) % MCV (78-100) fl MCH (26-32) pg MCHC (32-36) g/dl RDW (11.5-14.0) % Plt Count (150-450) K/mm3 MPV (7.5-11.0) fl Gran % (36.0-66.0) % Eos # (Auto) (0-0.5) Absolute Lymphs (auto) (1.0-4.6) Absolute Monos (auto) (0.0-1.3) Lymphocytes % (24.0-44.0) % Monocytes % (0.0-12.0) % Eosinophils % (0.00-5.0) % Basophils % (0.0-0.4) % Absolute Granulocytes (1.4-6.9) Basophils # (0-0.4) Sodium (137-145) mmol/L Potassium (3.5-5.1) mmol/L Chloride (98-107) mmol/L Carbon Dioxide (22-30) mmol/L Anion Gap (5-15) MEQ/L BUN (7-17) mg/dL Creatinine (0.52-1.04) mg/dL Estimated GFR ML/MIN Glucose (74-106) mg/dL Calcium (8.4-10.2) mg/dL Total Bilirubin (0.2-1.3) mg/dL AST (14-36) U/L ALT (0-35) U/L Alkaline Phosphatase (38-126) U/L Troponin I < 0.012 < 0.012 < 0.012 (0.000-0.034) ng/mL Serum Total Protein (6.3-8.2) g/dL Albumin (3.5-5.0) g/dL Triglycerides (30-150) mg/dL Cholesterol (50-200) mg/dL LDL Cholesterol (30-100) mg/dL HDL Cholesterol (40-60) mg/dL Heart Disease Risk Ratio 09/19/19 09/19/19 Range/Units 05:00 05:00 WBC (4.0-10.5) K/mm3 RBC (4.1-5.4) M/mm3 Hgb (12.0-16.0) gm/dl Hct (35-47) % MCV (78-100) fl MCH (26-32) pg MCHC (32-36) g/dl RDW (11.5-14.0) % Plt Count (150-450) K/mm3 MPV (7.5-11.0) fl Gran % (36.0-66.0) % Eos # (Auto) (0-0.5) Absolute Lymphs (auto) (1.0-4.6) Absolute Monos (auto) (0.0-1.3) Lymphocytes % (24.0-44.0) % Monocytes % (0.0-12.0) % Eosinophils % (0.00-5.0) % Basophils % (0.0-0.4) % Absolute Granulocytes (1.4-6.9) Basophils # (0-0.4) Sodium (137-145) mmol/L Potassium (3.5-5.1) mmol/L Chloride (98-107) mmol/L Carbon Dioxide (22-30) mmol/L Anion Gap (5-15) MEQ/L BUN (7-17) mg/dL Creatinine (0.52-1.04) mg/dL Estimated GFR ML/MIN Glucose (74-106) mg/dL Calcium (8.4-10.2) mg/dL Total Bilirubin (0.2-1.3) mg/dL AST (14-36) U/L ALT (0-35) U/L Alkaline Phosphatase (38-126) U/L Troponin I < 0.012 (0.000-0.034) ng/mL Serum Total Protein (6.3-8.2) g/dL Albumin (3.5-5.0) g/dL Triglycerides 168 H (30-150) mg/dL Cholesterol 126 (50-200) mg/dL LDL Cholesterol 74 (30-100) mg/dL HDL Cholesterol 30 L (40-60) mg/dL Heart Disease Risk Ratio 4.3 Micro Results-Entire Visit: Accuchecks Date 09/19/19 Date 09/18/19 Date 09/18/19 Time 07:30 Time 20:30 Time 16:30 Accucheck Value: 117 Accucheck Value: 157 Accucheck Value: 132 - Radiology Exams Ordered Rad Exams-Entire Visit: Radiology Procedures Category Date Time Status CERVICAL SPINE WO CONTRAST [CT] Stat Exams 09/18/19 13:34 Completed CHEST 1 VIEW (PORTABLE) Stat Exams 09/18/19 12:08 Completed HEAD WITHOUT CONTRAST [CT] Stat Exams 09/18/19 12:08 Completed - Procedures and Test Procedures and Tests throughout Hospitalization: Therapy Orders & Screens 09/18/19 14:13 EKG [id number],PRN Comment: 09/18/19 19:42 EKG ONCE Comment: Diagnosis: chest pain rule out CO 09/19/19 05:00 EKG ONCE Comment: Diagnosis: chest pain rule out CO 09/20/19 05:00 EKG ONCE Comment: Diagnosis: chest pain rule out CO 09/21/19 05:00 EKG ONCE Comment: Diagnosis: chest pain rule out CO 09/22/19 08:56 Cardiolite Stress Test-RT ONCE Reason For Exam: Comment: Diagnosis: chest pain rule out CO Sleep Study With 4 or More Par ONCE Reason For Exam: Comment: Diagnosis: chest pain rule out CO - Discharge Discharge Date: 09/19/19 Disposition: Home, Self-Care Condition: Stable Prescriptions: No Action Levothyroxine Sodium 50 mcg PO DAILY Loratadine 10 mg PO LUNCH Topiramate 50 mg PO HS Potassium Chloride 10 Meq Tab* [Klor Con 10 MEQ] 20 meq PO LUNCH Omeprazole 20 mg PO HS Meloxicam 7.5 mg [Mobic 7.5 MG] 7.5 mg PO BID Losartan Potassium 25 mg PO LUNCH hydroCHLOROthiazide [Hydrochlorothiazide] 12.5 mg PO LUNCH Glipizide 5 mg [Glucotrol 5 MG] 5 mg PO BID Gabapentin [Neurontin] 300 mg PO HS Rosuvastatin Calcium 10 mg PO HS Additional Instructions: Pt. will have outpatient cardiac stress test, and sleep study, follow-up with Dr Moreno next week. Follow up with: CANDACE CARMONA FNP [Primary Care Provider] - 1 Week
[2019-09-19] MEDS: Mobic 7.5 MG PO SCH ×2 (09:26→10:36)
[2019-09-19] MEDS: Glucotrol 5 MG PO SCH (09:26)
[2019-09-19] MEDS ORDERED: SYNTHROID 50 MCG PO SCH (10:00)
[2019-09-19] MEDS ORDERED: Ecotrin 325 MG PO SCH (10:00)
[2019-09-19 11:43] LABS: Amourphous Crystal MANY /HPF (NEGATIVE); Appearance TURBID (CLEAR); Bilirubin NEGATIVE (NEGATIVE); Blood NEGATIVE Ery/ul (0-5); Glucose NEGATIVE (NEGATIVE); Ketones NEGATIVE (NEGATIVE); Leukocyte Esterase TRACE (NEGATIVE); Mucus SLIGHT /HPF (NEGATIVE); Nitrite NEGATIVE (NEGATIVE); Protein,Urine Dip NEGATIVE (Negative); Specific Gravity 1.027 (1.005-1.025); Urobilinogen 4 mg/dL (0-1)
[2019-09-19] MEDS ORDERED: LORATADINE 10 MG PO SCH (12:00)
[2019-09-19] MEDS ORDERED: NON-FORMULARY ITEM (Hydrochlorothiazide [Hydrochlorothiazide] 12.5 MG) PO SCH (12:00)
[2019-09-19] MEDS ORDERED: NON-FORMULARY ITEM (Losartan Potassium [Losartan Potassium] 25 MG) PO SCH (12:00)
[2019-09-19] MEDS: hydroDIURIL 25 MG PO SCH (12:26)
[2019-09-19] MEDS: Klor Con 10 MEQ PO SCH (12:26)
[2019-09-19] MEDS: CLARITIN 10 MG PO SCH (12:27)
[2019-09-19] MEDS: Cozaar 50 MG PO SCH (12:27)
[2019-09-19 12:38] VITALS: BP 128/57; PULSE 75
[2019-09-19 14:14] VITALS: O2SAT 98
== END 2019-09-19 14:55 | disposition home or self-care (01) ==
LOC: ED 10:41 → MED SURG 14:10
PROVIDERS: ADMIT Family Medicine; ATTEND Family Medicine
DX: R07.9 Chest pain, unspecified (principal); G43.909 Migraine, unspecified, not intractable, without status migrainosus; R53.83 Other fatigue; E11.9 Type 2 diabetes mellitus without complications; I10 Essential (primary) hypertension; E03.9 Hypothyroidism, unspecified; Z79.899 Other long term (current) drug therapy
CPT/HCPCS: 36000; 36415; 70450; 71045; 72125; 80053; 80061; 81001; 82962; 83721; 84443; 84484; 85025; 85379; 93005; 93041; 93268; 94760; 96374; 96375; 99285; G0378; J2270; J2405; A9270-GY

== ENCOUNTER 2021-02-02 15:48 | Emergency (ER) | payer OTHER ==
--- NOTE | 2021-02-02 15:52 | ERPHSYRPT ---
- History of Present Illness Time Seen by Provider: 02/02/21 15:52 Source: patient Exam Limitations: no limitations Physician History: This is an obese 60-year-old female who has a history of hypertension, elevated cholesterol, gastroesophageal reflux disease hypothyroidism, [id number] diabetes, COPD, and presents with initial upper midline pain that she describes as sharp and burning and has radiated to her upper chest in the midline. She is scheduled to see cardiology Dr. Jesus at [facility] in [facility] March 2021. In addition she is in the middle of a work-up from the group work program director, Dr. Lorenzo. She has a follow-up appointment scheduled in March to see her group work program director. Patient has had this upper midline back pain in the past. However, today the onset of pain was sudden sharp and burning. This was different than usual. She has no abdominal pain. She denies nausea vomiting or diarrhea. She has not had any coughing, retching or vomiting spells. She has not had no fevers or chills. Patient did not suffer any chest chest or back trauma. Timing/Duration: today Method of Injury: other (No injury) Quality: burning, sharp Back Pain Location: T-spine Severity of Pain-Max: mild Severity of Pain-Current: mild Modifying Factors: Improves With: nothing Associated Symptoms: denies symptoms Previous symptoms: same symptoms as today, recently seen, recently treated Allergies/Adverse Reactions: Penicillins Allergy (Verified 09/18/19 11:28) Home Medications: Levothyroxine Sodium 50 mcg PO DAILY 05/12/12 [History] Loratadine 10 mg PO LUNCH 05/12/12 [History] Gabapentin [Neurontin] 300 mg PO HS 09/18/19 [History] Glipizide 5 mg [Glucotrol 5 MG] 5 mg PO BID 09/18/19 [History] Losartan Potassium 25 mg PO LUNCH 09/18/19 [History] Omeprazole 20 mg PO HS 09/18/19 [History] Potassium Chloride 10 Meq Tab* [Klor Con 10 MEQ] 20 meq PO LUNCH 09/18/19 [History] Rosuvastatin Calcium 10 mg PO HS 09/18/19 [History] hydroCHLOROthiazide [Hydrochlorothiazide] 12.5 mg PO LUNCH 09/18/19 [History] Hx Influenza Vaccination/Date Given: No Hx Pneumococcal Vaccination/Date Given: No Travel Risk - International Travel Have you traveled outside of the country in past 3 weeks: No - Coronavirus Screening Are you exhibiting any of the following symptoms?: No Close contact with a COVID-19 positive Pt in past 14-21 Days: No - Review of Systems Constitutional: No Symptoms Eyes: No Symptoms Ears, Nose, & Throat: No Symptoms Respiratory: No Symptoms Cardiac: Chest Pain Abdominal/Gastrointestinal: No Symptoms Genitourinary Symptoms: No Symptoms Musculoskeletal: Back Pain (Upper midline back burning and sharp pain) Skin: No Symptoms Neurological: No Symptoms Psychological: No Symptoms Endocrine: No Symptoms Hematologic/Lymphatic: No Symptoms Immunological/Allergic: No Symptoms All Other Systems: Reviewed and Negative - Past Medical History Pertinent Past Medical History: Yes Neurological History: Other ENT History: No Pertinent History Cardiac History: Hypertension Respiratory History: No Pertinent History Endocrine Medical History: Diabetes Type II, Hypothyroidism Musculoskeletal History: Arthritis, Fibromyalgia GI Medical History: No Pertinent History History: No Pertinent History Psycho-Social History: Depression Female Reproductive Disorders: No Pertinent History Other Medical History: niyah sibley, migraines - Past Surgical History Past Surgical History: Yes Neuro Surgical History: No Pertinent History Cardiac: No Pertinent History Respiratory: No Pertinent History Gastrointestinal: Cholecystectomy Genitourinary: No Pertinent History Musculoskeletal: No Pertinent History Female Surgical History: Dilation & Curettage Other Surgical History: nose surgery - Social History Smoking Status: Never smoker Exposure to second hand smoke: No Drug Use: none Patient Lives Alone: No - Nursing Vital Signs Nursing Vital Signs: Initial Vital Signs Temperature 97.2 F 02/02/21 15:49 Pulse Rate 88 02/02/21 15:49 Respiratory Rate 24 02/02/21 15:49 Blood Pressure 123/73 02/02/21 15:49 O2 Sat by Pulse Oximetry 97 02/02/21 15:49 Pain Scale Pain Intensity [Upper Back] 6 Pain Intensity 3 - Physical Exam General Appearance: no apparent distress, alert, anxiety, obese Eye Exam: PERRL/EOMI, eyes nml inspection Ears, Nose, Throat Exam: normal ENT inspection, moist mucous membranes Neck Exam: normal inspection, non-tender, supple, full range of motion Respiratory Exam: normal breath sounds, chest tenderness (Described as upper midline substernal burning), lungs clear, airway intact, No respiratory distress Cardiovascular Exam: regular rate/rhythm, normal heart sounds, normal peripheral pulses Gastrointestinal Exam: soft, normal bowel sounds, No tenderness Pelvic Exam: not done Rectal Exam: not done Back Exam: normal inspection, normal range of motion, vertebral tenderness, No CVA tenderness Extremity Exam: normal inspection, normal range of motion, pelvis stable Neurologic Exam: alert, oriented x 3, cooperative, roaster helper II-XII nml as tested, normal mood/affect, nml cerebellar function, nml station & gait, sensation nml Skin Exam: normal color, warm, dry Lymphatic Exam: No adenopathy SpO2 Interpretation: normal O2 Delivery: Room Air - Course Nursing assessment & vital signs reviewed: Yes EKG Interpreted by Me: RATE (80), Sinus Rhythm, NORMAL AXIS, NORMAL INTERVALS, NORMAL QRS, NORMAL ST-T, Other (There are no acute ischemic changes on today's EKG. There is improvement in today's EKG when compared to the comparison EKG d ated 01/25/2021.) Ordered Tests: Active Orders 24 hr Category Date Time Status Top Lift Compresser STAT Care 02/02/21 16:15 Active EKG-ER Only STAT Care 02/02/21 16:14 Active IV Insertion STAT Care 02/02/21 16:14 Active Pulse Oximetry (ED) STAT Care 02/02/21 16:14 Active CHEST 1 VIEW (PORTABLE) Stat Exams 02/02/21 16:14 Completed CTA CHEST W AND/OR WO [CT] Stat Exams 02/02/21 17:01 Taken CBC W DIFF Stat Lab 02/02/21 16:14 Completed CMP Stat Lab 02/02/21 16:15 Completed D-DIMER QUANTITATIVE Stat Lab 02/02/21 16:15 Completed NT PRO BNP Stat Lab 02/02/21 16:15 Completed TROPONIN Q3H Lab 02/02/21 16:15 Completed TROPONIN Q3H Lab 02/02/21 19:15 Ordered TROPONIN Q3H Lab 02/02/21 22:15 Ordered TROPONIN Q3H Lab 02/03/21 01:15 Ordered TROPONIN Q3H Lab 02/03/21 04:15 Ordered Medication Summary Discontinued Medications Generic Name Dose Route Start Last Admin Trade Name Freq PRN Reason Stop Dose Admin Aspirin 324 mg 02/02/21 16:14 02/02/21 16:17 Baby Aspirin 81 Mg Chew PO 02/02/21 16:15 324 mg STAT ONE Administration Aspirin Confirm 02/02/21 16:17 Baby Aspirin 81 Mg Chew Administered 02/02/21 16:18 Dose 324 mg .ROUTE .STK-MED ONE Lab/Rad Data: Laboratory Result Diagrams 02/02/21 16:14 02/02/21 16:15 Laboratory Results 02/02/21 02/02/21 02/02/21 Range/Units 16:15 16:15 16:15 WBC (4.0-10.5) K/mm3 RBC (4.1-5.4) M/mm3 Hgb (12.0-16.0) gm/dl Hct (35-47) % MCV (78-100) fl MCH (26-32) pg MCHC (32-36) g/dl RDW (11.5-14.0) % Plt Count (150-450) K/mm3 MPV (7.5-11.0) fl Gran % (36.0-66.0) % Eos # (Auto) (0-0.5) Absolute Lymphs (auto) (1.0-4.6) Absolute Monos (auto) (0.0-1.3) Lymphocytes % (24.0-44.0) % Monocytes % (0.0-12.0) % Eosinophils % (0.00-5.0) % Basophils % (0.0-0.4) % Absolute Granulocytes (1.4-6.9) Basophils # (0-0.4) D-Dimer 270 (215-500) ng/mL Sodium 147 H (137-145) mmol/L Potassium 3.9 (3.5-5.1) mmol/L Chloride 97 L (98-107) mmol/L Carbon Dioxide 32 H (22-30) mmol/L Anion Gap 21.7 H (5-15) MEQ/L BUN 15 (7-17) mg/dL Creatinine 0.82 (0.52-1.04) mg/dL Estimated GFR > 60.0 ML/MIN Glucose 173 H (74-106) mg/dL Calcium 9.6 (8.4-10.2) mg/dL Total Bilirubin 0.80 (0.2-1.3) mg/dL AST 52 H (14-36) U/L ALT 43 H (0-35) U/L Alkaline Phosphatase 86 (38-126) U/L Troponin I < 0.012 (0.000-0.034) ng/mL NT-Pro-B Natriuret Pep 17.8 (0-900) pg/mL Serum Total Protein 7.4 (6.3-8.2) g/dL Albumin 4.5 (3.5-5.0) g/dL 02/02/21 Range/Units 16:14 WBC 6.2 (4.0-10.5) K/mm3 RBC 4.99 (4.1-5.4) M/mm3 Hgb 15.0 (12.0-16.0) gm/dl Hct 46.2 (35-47) % MCV 92.6 (78-100) fl MCH 30.1 (26-32) pg MCHC 32.5 (32-36) g/dl RDW 13.1 (11.5-14.0) % Plt Count 243 (150-450) K/mm3 MPV 9.3 (7.5-11.0) fl Gran % 52.8 (36.0-66.0) % Eos # (Auto) 0.36 (0-0.5) Absolute Lymphs (auto) 2.15 (1.0-4.6) Absolute Monos (auto) 0.40 (0.0-1.3) Lymphocytes % 34.5 (24.0-44.0) % Monocytes % 6.4 (0.0-12.0) % Eosinophils % 5.8 H (0.00-5.0) % Basophils % 0.5 (0.0-0.4) % Absolute Granulocytes 3.30 (1.4-6.9) Basophils # 0.03 (0-0.4) D-Dimer (215-500) ng/mL Sodium (137-145) mmol/L Potassium (3.5-5.1) mmol/L Chloride (98-107) mmol/L Carbon Dioxide (22-30) mmol/L Anion Gap (5-15) MEQ/L BUN (7-17) mg/dL Creatinine (0.52-1.04) mg/dL Estimated GFR ML/MIN Glucose (74-106) mg/dL Calcium (8.4-10.2) mg/dL Total Bilirubin (0.2-1.3) mg/dL AST (14-36) U/L ALT (0-35) U/L Alkaline Phosphatase (38-126) U/L Troponin I (0.000-0.034) ng/mL NT-Pro-B Natriuret Pep (0-900) pg/mL Serum Total Protein (6.3-8.2) g/dL Albumin (3.5-5.0) g/dL - Progress Progress: unchanged Progress Note: 02/02/21 16:54 Portable chest x-ray shows a new mild left base ? Infiltrate versus atelectasis and tiny effusion 02/02/21 18:12 CT of the chest shows a normal aorta. There is minimal left base atelectasis/scarring. No evidence of infiltrate. Counseled pt/family regarding: lab results, diagnosis, need for follow-up, rad results - Departure Departure Disposition: Home Clinical Impression: Back pain, Chest pain Condition: Stable Critical Care Time: No Referrals: MARYSOL DOUGLASS, [Primary Care Provider] - Additional Instructions: Take your medications as prescribed. Keep your appointments with your duplicating machine servicer and group work program director.
[2021-02-02] MEDS ORDERED: BABY ASPIRIN 81 MG CHEW PO ONE (16:14)
[2021-02-02] MEDS ORDERED: BABY ASPIRIN 81 MG CHEW ONE (16:17)
[2021-02-02 16:26] LABS: BASOPHIL % 0.5 % (0.0-0.4); Basophil (Absolute #) 0.03 (0-0.4); Eosinophil % 5.8 % (0.00-5.0); Eosinophil (Absolute #) 0.36 (0-0.5); Hematocrit 46.2 % (35-47); Lymphocyte (Absolute #) 2.15 (1.0-4.6); Lymphocytes % 34.5 % (24.0-44.0); Mean Cell Volume 92.6 fl (78-100); Mean Corpuscular Hemoglobin 30.1 pg (26-32); Mean Corpuscular Hgb Concent. 32.5 g/dl (32-36); Mean Platelet Volume 9.3 fl (7.5-11.0); Monocytes % 6.4 % (0.0-12.0); Neutrophil % 52.8 % (36.0-66.0); Platelet Count 243 K/mm3 (150-450); Red Blood Count 4.99 M/mm3 (4.1-5.4); Red Cell Distribution Width 13.1 % (11.5-14.0); White Blood Count 6.2 K/mm3 (4.0-10.5)
--- NOTE | 2021-02-02 16:41 | XRAY ---
Indication: Chest pain. Comparison: January 17, 2021. Portable chest less inflated with new mild left base infiltrate/atelectasis and tiny effusion. Remaining heart and lungs unremarkable again with incidental left upper lobe calcified granuloma.
[2021-02-02 16:48] LABS: ALBUMIN 4.5 g/dL (3.5-5.0); ALKALINE PHOSPHATASE 86 U/L (38-126); ANION GAP 21.7 MEQ/L (5-15); BLOOD UREA NITROGEN 15 mg/dL (7-17); CHLORIDE 97 mmol/L (98-107); Calcium 9.6 mg/dL (8.4-10.2); Carbon Dioxide 32 mmol/L (22-30); Creatinine 1 0.82 mg/dL (0.52-1.04); EST GLOMERULAR FILTRATION RATE > 60.0 ML/MIN; Glucose 173 mg/dL (74-106); NT PRO BNP 17.8 pg/mL (0-900); Potassium 3.9 mmol/L (3.5-5.1); SGOT/AST 52 U/L (14-36); SGPT/ALT 43 U/L (0-35); SODIUM 147 mmol/L (137-145); Total Protein 7.4 g/dL (6.3-8.2)
[2021-02-02 18:20] VITALS: BP 121/79
[2021-02-02 18:41] VITALS: PULSE 74; O2SAT 98
--- NOTE | 2021-02-03 09:00 | XRAY ---
Indication: Chest pain and dyspnea on exertion. Thoracic aneurysm. Conventional contrast enhanced CTA chest performed using 100 cc Isovue 370 contrast. Sagittal and coronal reformatted images obtained. Additional 3-dimensional reformatted images obtained using separate workstation. Comparison: None Thoracic aorta is normal in course and caliber with minimal aortic arch calcifications. No aneurysm/dissection. Heart is not enlarged. No central pulmonary embolus. A few small bilateral hilar calcified nodes. No pathologic mediastinal/hilar lymphadenopathy. Lungs demonstrate minimal bilateral dependent atelectasis. Small left upper lobe calcified granuloma and minimal left base fibrosis/scarring. No suspicious pulmonary mass, infiltrate, consolidation, or effusion. Bony thorax intact with minimal degenerative changes throughout the spine. Limited upper abdomen demonstrates fatty liver, 14.1 cm splenomegaly, and cholecystectomy clips. Impression: 1. Negative CTA chest with contrast exam. No acute cardiopulmonary abnormalities. 2. Incidental left base fibrosis/scarring, fatty liver, splenomegaly, and old granulomatous disease.
== END 2021-02-02 18:51 | disposition home or self-care (01) ==
LOC: ED 15:48
DX: M54.9 Dorsalgia, unspecified (principal); R07.9 Chest pain, unspecified; I10 Essential (primary) hypertension; E78.00 Pure hypercholesterolemia, unspecified; K21.9 Gastro-esophageal reflux disease without esophagitis
CPT/HCPCS: 36000; 36415; 71045; 71275; 80053; 83880; 84484; 85025; 85379; 93005; 93041; 94760; 99284; A9270-GY

== ENCOUNTER 2021-05-25 09:13 | Emergency (ER) | payer OTHER ==
[2021-05-25 09:27] VITALS: BP 151/83; PULSE 71; O2SAT 97
--- NOTE | 2021-05-25 09:51 | ERPHSYRPT ---
- History of Present Illness Time Seen by Provider: 05/25/21 09:35 Source: patient Exam Limitations: no limitations Patient Subjective Stated Complaint: Pt states that she began having muscle spasms to the right lower back on Sunday and they intensified during the night, pt went to see Dr. Martinez for it on Sunday and states that they gave her an injection of Tramadol and then she had PT yesterday and thought it helped but the pain returned before she got home Triage Nursing Assessment: Pt brought to the ER by her , hypertensive, rates back pain as 10/10, denies N&V, denies injury to back, feels like a constant pain that has a severe spasm that comes and goes, pulses normal Physician History: This is a 61-year-old obese white female patient of Dr. Martinez who has a history of hypertension, elevated cholesterol, hypothyroidism, noninsulin- dependent diabetes, and fibromyalgia and presents with a 3-day history of worsening right sided back pain at the lumbar level. She did not suffer any acute, traumatic injury. She was lifting her grandchildren as well as standing to cook over the weekend. Patient was seen by her primary care physician 2 days ago who prescribed methocarbamol as an outpatient and was given a steroid injection. It seemed to take the edge off but only lasted a short time. She did not take any methocarbamol antispasmodic medication. Patient states that the pain is described as a spasm and is localized in the right paraspinous muscle region. Timing/Duration: day(s) (3) Method of Injury: other (No injury) Back Pain Location: lumbar spine, paraspinous muscles Severity of Pain-Max: moderate Severity of Pain-Current: moderate Modifying Factors: Improves With: movement Associated Symptoms: lower back pain, muscle spasms (Right side lumbar level), No urinary incontinence, No numbness in legs/feet, No sensory/motor loss, No tingling in legs/feet Previous symptoms: same symptoms as today, recently seen, recently treated Allergies/Adverse Reactions: Penicillins Allergy (Verified 05/25/21 09:26) Home Medications: Levothyroxine Sodium 50 mcg PO DAILY 05/12/12 [History] Loratadine 10 mg PO LUNCH 05/12/12 [History] Glipizide 5 mg [Glucotrol 5 MG] 5 mg PO BID 09/18/19 [History] Losartan Potassium 25 mg PO LUNCH 09/18/19 [History] Omeprazole 20 mg PO HS 09/18/19 [History] Potassium Chloride 10 Meq Tab* [Klor Con 10 MEQ] 20 meq PO LUNCH 09/18/19 [History] Rosuvastatin Calcium 10 mg PO HS 09/18/19 [History] hydroCHLOROthiazide [Hydrochlorothiazide] 12.5 mg PO LUNCH 09/18/19 [History] Methocarbamol 500 mg [Robaxin 500 MG] 750 mg PO Q6H 05/25/21 [History] Tizanidine HCl 4 mg [Zanaflex 4 MG] 4 mg PO HS 05/25/21 [History] Hx Tetanus, Diphtheria Vaccination/Date Given: No Hx Influenza Vaccination/Date Given: No Hx Pneumococcal Vaccination/Date Given: No Travel Risk - International Travel Have you traveled outside of the country in past 3 weeks: No - Coronavirus Screening Are you exhibiting any of the following symptoms?: No Close contact with a COVID-19 positive Pt in past 14-21 Days: No - Vaccine Status Have you recieved a Covid-19 vaccination: Yes Buyer Planner: Moderna - Vaccination Dates Date of 2cond Vaccination (if applicable): 01/2021 - Review of Systems Constitutional: No Symptoms Eyes: No Symptoms Ears, Nose, & Throat: No Symptoms Respiratory: No Symptoms Cardiac: No Symptoms Abdominal/Gastrointestinal: No Symptoms Genitourinary Symptoms: No Symptoms, No Incontinence Musculoskeletal: Back Pain (Right side paraspinous muscle spasm at the lumbar level. Pain localized to there), No Fall, No Injury Skin: No Symptoms Neurological: No Symptoms Psychological: No Symptoms Endocrine: No Symptoms Hematologic/Lymphatic: No Symptoms Immunological/Allergic: No Symptoms All Other Systems: Reviewed and Negative - Past Medical History Pertinent Past Medical History: Yes Neurological History: Other ENT History: No Pertinent History Cardiac History: Hypertension Respiratory History: No Pertinent History Endocrine Medical History: Diabetes Type II, Hypothyroidism Musculoskeletal History: Arthritis, Fibromyalgia GI Medical History: No Pertinent History History: No Pertinent History Psycho-Social History: Depression Female Reproductive Disorders: No Pertinent History Other Medical History: niyah sibley, migraines - Past Surgical History Past Surgical History: Yes Neuro Surgical History: No Pertinent History Cardiac: No Pertinent History Respiratory: No Pertinent History Gastrointestinal: Cholecystectomy Genitourinary: No Pertinent History Musculoskeletal: No Pertinent History Female Surgical History: Dilation & Curettage Other Surgical History: nose surgery - Social History Smoking Status: Never smoker Exposure to second hand smoke: No Drug Use: none Patient Lives Alone: No - Female History Hx Now: No - Nursing Vital Signs Nursing Vital Signs: Initial Vital Signs Pulse Rate 71 05/25/21 09:19 Blood Pressure 151/83 05/25/21 09:19 O2 Sat by Pulse Oximetry 97 05/25/21 09:19 Pain Scale Pain Intensity [Right Lower 10 Back] Pain Intensity 10 - Physical Exam General Appearance: mild distress, alert, anxiety, obese Eye Exam: PERRL/EOMI, eyes nml inspection Ears, Nose, Throat Exam: normal ENT inspection, moist mucous membranes Neck Exam: normal inspection, non-tender, supple, full range of motion Respiratory Exam: airway intact, No chest tenderness, No respiratory distress Gastrointestinal Exam: No tenderness Pelvic Exam: not done Rectal Exam: not done Back Exam: decreased range of motion, muscle spasm (Right paraspinous muscle lumbar level), No vertebral tenderness Extremity Exam: normal inspection, normal range of motion, pelvis stable Neurologic Exam: alert, oriented x 3, cooperative, workers' compensation claims examiner II-XII nml as tested, normal mood/affect, nml cerebellar function, nml station & gait, sensation nml Skin Exam: normal color, warm, dry Lymphatic Exam: No adenopathy SpO2 Interpretation: normal SpO2: 97 O2 Delivery: Room Air - Course Nursing assessment & vital signs reviewed: Yes - Progress Progress: improved, pain not gone completely Counseled pt/family regarding: diagnosis, need for follow-up - Departure Departure Disposition: Home Clinical Impression: Back pain, Muscle spasm of back Condition: Stable Critical Care Time: No Referrals: MARYSOL MARTINEZ DO [Primary Care Provider] - Additional Instructions: Take your methocarbamol and tizanidine as prescribed. Call your primary care physician's office today to make arrangements for further evaluation and management. Prescriptions: Oxycodone HCl/Acetaminophen [Percocet 5-325 mg Tablet] 1 each PO Q8H PRN PRN #6 tablet MDD 3 PRN Reason: Pain Prednisone 10 mg [Deltasone 10 mg] 10 mg PO TID #12 tablet
[2021-05-25] MEDS ORDERED: solu-MEDROL 125 MG, Sterile H2O 10 ml 2 ML IM ONE ×2 (09:58)
[2021-05-25] MEDS ORDERED: Ativan 2 MG/1 ML VIAL IM ONE (09:59)
[2021-05-25] MEDS ORDERED: ZOFRAN ODT 4 MG PO ONE (09:59)
[2021-05-25] MEDS ORDERED: Hydromorphone 1 mg/ml Injection IM ONE (09:59)
[2021-05-25] MEDS ORDERED: Ativan 2 MG/1 ML VIAL ONE (10:04)
[2021-05-25] MEDS ORDERED: ZOFRAN ODT 4 MG ONE (10:05)
[2021-05-25] MEDS ORDERED: Sterile H2O 10 ml IJ ONE (10:06)
[2021-05-25] MEDS ORDERED: Hydromorphone 1 mg/ml Injection ONE (10:06)
[2021-05-25] MEDS ORDERED: solu-MEDROL ONE (10:06)
== END 2021-05-25 10:56 | disposition home or self-care (01) ==
LOC: ED 09:13
DX: M54.9 Dorsalgia, unspecified (principal); M62.830 Muscle spasm of back; M54.5 Low back pain; I10 Essential (primary) hypertension; E78.00 Pure hypercholesterolemia, unspecified; E03.9 Hypothyroidism, unspecified; E11.9 Type 2 diabetes mellitus without complications; M79.7 Fibromyalgia; Z79.899 Other long term (current) drug therapy
CPT/HCPCS: 96372; 99284; J1170; J2060; J2930; Q0162

== ENCOUNTER 2021-12-21 08:26 | Day surgery (SDC) | payer OTHER ==
[2012-05-13 03:02] VITALS: BP 117/72
[2021-12-21] MEDS ORDERED: BUPIVACAINE 0.5% VIAL IJ ONE (08:27)
[2021-12-21] MEDS ORDERED: Depo-Medrol 40 MG/ML IM ONE (08:27)
[2021-12-21] MEDS ORDERED: Reglan 10 MG/2 ML ONE (09:29)
[2021-12-21] MEDS ORDERED: Pepcid 20 MG VIAL IV ONE ×2 (09:29)
[2021-12-21] MEDS ORDERED: DIPRIVAN 200 MG/20 ML IV ONE (10:49)
[2021-12-21] MEDS ORDERED: Lactated Ringers 1,000 ML IV ONE (11:14)
--- NOTE | 2021-12-21 12:50 | XRAY ---
Indication: Bilateral SI joint injection. Intraoperative fluoroscopy provided for 26 seconds. 4 digital spot images submitted for interpretation demonstrates posterior needle tip projecting over the inferior left and right SI joints. Correlate with intraoperative findings/report.
--- NOTE | 2021-12-21 12:58 | XRAY ---
26 seconds fluoroscopy time in surgery for bilateral SI joint injections.
== END 2021-12-21 11:15 | disposition home or self-care (01) ==
LOC: SDC-PAIN 08:26
PROVIDERS: ATTEND Psychiatry & Neurology Pain Medicine
DX: M46.1 Sacroiliitis, not elsewhere classified (principal); E11.9 Type 2 diabetes mellitus without complications; Z79.899 Other long term (current) drug therapy
CPT/HCPCS: 27096; 72202; 77002; 82947; J1030; J2704; G0260

== ENCOUNTER 2022-01-11 14:10 | Day surgery (SDC) | payer OTHER ==
[2012-05-13 03:02] VITALS: BP 117/72
[2022-01-11] MEDS ORDERED: Depo-Medrol 40 MG/ML IM ONE ×2 (14:11)
[2022-01-11] MEDS ORDERED: Xylocaine 1% Vial 30 ML PF IJ ONE (14:11)
[2022-01-11] MEDS ORDERED: Sodium Chloride 0.9(Preservative Free) 10 ML IJ ONE (14:11)
[2022-01-11] MEDS ORDERED: BUPIVACAINE 0.5% VIAL IJ ONE ×2 (14:11)
--- NOTE | 2022-01-11 20:41 | XRAY ---
Indication: Left knee injection. Intraoperative fluoroscopy provided for 5 seconds. Single digital spot image submitted for interpretation demonstrates needle tip projecting over the left femur intercondylar notch. Small amount of contrast injected for needle tip placement. Correlate with intraoperative findings/report.
--- NOTE | 2022-01-11 20:41 | XRAY ---
Indication: Right knee injection. Intraoperative fluoroscopy provided for 10 seconds. Single digital spot image submitted for interpretation demonstrates needle tip projecting over the right femur intercondylar notch. Small amount of contrast injected for needle tip placement. Correlate with intraoperative findings/report.
--- NOTE | 2022-01-12 08:55 | XRAY ---
10 seconds fluoroscopy time in surgery for intra-articular injection of the right knee.
--- NOTE | 2022-01-12 08:56 | XRAY ---
5 seconds fluoroscopy time in surgery for intra-articular injection of the left knee.
== END 2022-01-11 17:43 | disposition home or self-care (01) ==
LOC: SDC-PAIN 14:10
PROVIDERS: ATTEND Psychiatry & Neurology Pain Medicine
DX: M17.0 Bilateral primary osteoarthritis of knee (principal); E11.9 Type 2 diabetes mellitus without complications; Z79.899 Other long term (current) drug therapy
CPT/HCPCS: 20610; 73560; 77002; 82947; J1030; J2001; Q9966

== ENCOUNTER 2022-05-03 08:48 | Day surgery (SDC) | payer OTHER ==
[2012-05-13 03:02] VITALS: BP 117/72
[2022-05-03] MEDS ORDERED: Sodium Chloride 0.9(Preservative Free) 10 ML IJ ONE (08:49)
[2022-05-03] MEDS ORDERED: XYLOCAINE-MPF 1% 5ML SDV IJ ONE (08:49)
[2022-05-03] MEDS ORDERED: Decadron 4 MG INJ IV ONE (08:49)
[2022-05-03] MEDS ORDERED: Depo-Medrol 40 MG/ML IM ONE (08:49)
[2022-05-03] MEDS ORDERED: DIPRIVAN 200 MG/20 ML IV ONE (09:49)
[2022-05-03] MEDS ORDERED: Lactated Ringers 1,000 ML IV ONE (10:58)
--- NOTE | 2022-05-03 11:28 | XRAY ---
Indication: Left L4-S1 transforaminal CONSTANTINO. Intraoperative fluoroscopy provided for 47 seconds. 4 digital spot images submitted for interpretation demonstrate posterior needle tips projecting over the expected left L4 and L5 nerve roots. Small amount of contrast injected for needle tip placement. Correlate with intraoperative findings/report.
--- NOTE | 2022-05-03 11:33 | XRAY ---
Indication: Left piriformis injection. Intraoperative fluoroscopy provided for 10 seconds. Single digital spot images submitted for interpretation demonstrate posterior needle tip projecting over the expected left piriformis muscles. Small amount of contrast injected for needle tip placement. Correlate with intraoperative findings/report.
--- NOTE | 2022-05-03 12:13 | XRAY ---
47 seconds fluoroscopy time in surgery for left L4-S1 transforaminal CONSTANTINO.
--- NOTE | 2022-05-03 12:14 | XRAY ---
10 seconds fluoroscopy time in surgery for injection of the left piriformis muscle.
== END 2022-05-03 10:20 | disposition home or self-care (01) ==
LOC: SDC-PAIN 08:48
PROVIDERS: ATTEND Psychiatry & Neurology Pain Medicine
DX: M54.16 Radiculopathy, lumbar region (principal); M79.18 Myalgia, other site; E11.9 Type 2 diabetes mellitus without complications; Z79.899 Other long term (current) drug therapy
CPT/HCPCS: 20552; 64483; 64484; 72100; 72170; 77002; 77003; 82947; J1030; J1100; J2704; Q9966

== ENCOUNTER 2022-08-23 15:42 | Day surgery (SDC) | payer OTHER ==
[2012-05-13 03:02] VITALS: BP 117/72
[2022-08-23] MEDS ORDERED: BUPIVACAINE 0.5% VIAL IJ ONE (15:43)
[2022-08-23] MEDS ORDERED: Depo-Medrol 40 MG/ML IM ONE (15:43)
[2022-08-23] MEDS ORDERED: LIDOCAINE HCL 1% 50 MG/5 ML VL PF IJ ONE (15:43)
--- NOTE | 2022-08-23 19:38 | XRAY ---
Indication: Right knee injection. Intraoperative fluoroscopy provided for 12 second. Single digital spot image submitted for interpretation demonstrates needle tip projecting over the right femur intercondylar notch. Small amount of contrast injected for needle tip placement. Correlate with intraoperative findings/report.
--- NOTE | 2022-08-23 19:38 | XRAY ---
Indication: Left knee injection. Intraoperative fluoroscopy provided for 9 second. Single digital spot image submitted for interpretation demonstrates needle tip projecting over the left femur intercondylar notch. Small amount of contrast injected for needle tip placement. Correlate with intraoperative findings/report.
--- NOTE | 2022-08-24 09:18 | XRAY ---
9 seconds of fluoroscopy was used in surgery for a left intra-articular knee injection.
--- NOTE | 2022-08-24 09:18 | XRAY ---
12 seconds of fluoroscopy was used in surgery for a right intra-articular knee injection.
== END 2022-08-23 18:47 | disposition home or self-care (01) ==
LOC: SDC-PAIN 15:42
PROVIDERS: ATTEND Psychiatry & Neurology Pain Medicine
DX: M17.0 Bilateral primary osteoarthritis of knee (principal); E11.9 Type 2 diabetes mellitus without complications; Z79.899 Other long term (current) drug therapy
CPT/HCPCS: 20610; 73560; 77002; 82947; J1030; J2001; Q9966

== ENCOUNTER 2024-02-04 13:33 | Emergency (ER) | payer SELFPAY ==
[2024-02-04 14:20] VITALS: TEMP 97
[2024-02-04] MEDS: NORCO 5/325 MG PO ONE (14:53)
[2024-02-04] MEDS ORDERED: NORCO 5/325 MG ONE (14:53)
[2024-02-04 14:57] VITALS: BP 111/62; PULSE 87; RESP 16; O2SAT 95
[2024-02-04 14:57] LABS: Absolute Neutrophil Ct (ANC) 5.84 x10^3/uL (1.4-6.9); BASOPHIL % 0.7 % (0.0-0.4); Basophil (Absolute #) 0.06 x10^3/uL (0-0.4); Eosinophil % 0.7 % (0.00-5.0); Eosinophil (Absolute #) 0.06 x10^3/uL (0-0.5); Hemoglobin 15.2 g/dL (12.0-16.0); IMMATURE GRAN # 0.03 x10^3u/L (0.00-0.03); IMMATURE GRAN % 0.4 % (0.00-0.4); Lymphocyte (Absolute #) 1.62 x10^3/uL (1.0-4.6); Lymphocytes % 20.1 % (24.0-44.0); Mean Cell Volume 85.9 fL (78-100); Mean Corpuscular Hemoglobin 29.7 pg (26-32); Mean Corpuscular Hgb Concent. 34.5 g/dL (32-36); Mean Platelet Volume 9.3 fL (7.5-11.0); Monocyte (Absolute #) 0.44 x10^3/uL (0.0-1.3); Monocytes % 5.5 % (0.0-12.0); Neutrophil % 72.6 % (36.0-66.0); Platelet Count 256 x10^3/uL (150-450); Red Blood Count 5.12 x10^6/uL (4.1-5.4); Red Cell Distribution Width 12.3 % (11.5-14.0); White Blood Count 8.1 x10^3/uL (4.0-10.5)
[2024-02-04 15:06] LABS: ALBUMIN 4.5 g/dL (3.5-5.0); ANION GAP 13.6 MEQ/L (5-15); Calcium 10.1 mg/dL (8.4-10.2); Creatinine 1 0.73 mg/dL (0.52-1.04); EST GLOMERULAR FILTRATION RATE 92.9 ML/MIN; Potassium 3.5 mmol/L (3.5-5.1); Total Protein 7.7 g/dL (6.3-8.2)
--- NOTE | 2024-02-04 15:18 | XRAY ---
Indication: Pain and swelling. Comparison: None 2 view left lower leg demonstrates mild/moderate tricompartmental knee degenerative changes greatest medial compartment with chunky anterior heterotopic ossification. Incidental tiny plantar heel spur and scattered subcutaneous venous varicosities greatest lateral aspect. No other bony, articular, or soft tissue abnormalities.
--- NOTE | 2024-02-04 15:51 | ERPHSYRPT ---
- History of Present Illness Time Seen by Provider: 02/04/24 14:10 Source: patient Exam Limitations: no limitations Patient Subjective Stated Complaint: C/O Left calf pain that started the night before last. States she fell yesterday and hurt her left knee as well. Triage Nursing Assessment: Patient brought back to ER in a W/C. Patient has a cane with her and used it to assist with her transfer from chair to bed. She is alert and oriented. LLE is more swollen than the right. Right pedal pulse present and strong, found by palpation. Left pedal pulse present and weaker; had to find with the doppler. Skin tone normal to LLE. Physician History: Patient is a 63-year-old white female who approximately 36 hours ago developed pain in the calf of the left leg. There was no injury at that time but it was noted to be somewhat tender and warm to the touch and swollen. Yesterday after the pain in the leg it started she suffered a fall onto her left knee.She had not soughtCare until her visit to the ER. Method of Injury: fell Occurred: yesterday Quality: aching, throbbing Severity of Pain-Max: moderate Severity of Pain-Current: moderate Lower Extremities Pain: leg: left, knee: left, foot: left, ankle: left, heel: left Allergies/Adverse Reactions: Penicillins Allergy (Verified 02/04/24 13:57) Home Medications: Levothyroxine Sodium 50 mcg PO DAILY 05/12/12 [History] Loratadine 10 mg PO LUNCH 05/12/12 [History] Glipizide 5 mg [Glucotrol 5 MG] 5 mg PO BID 09/18/19 [History] Losartan Potassium 25 mg PO LUNCH 09/18/19 [History] Omeprazole 20 mg PO HS 09/18/19 [History] Potassium Chloride Tab* [Klor Con 10 MEQ] 20 meq PO LUNCH 09/18/19 [History] Rosuvastatin Calcium 10 mg PO HS 09/18/19 [History] hydroCHLOROthiazide [Hydrochlorothiazide] 12.5 mg PO LUNCH 09/18/19 [History] Methocarbamol [Robaxin 500 MG] 750 mg PO Q6H 05/25/21 [History] Tizanidine HCl 4 mg [Zanaflex 4 MG] 4 mg PO HS 05/25/21 [History] Hx Tetanus, Diphtheria Vaccination/Date Given: Yes Hx Influenza Vaccination/Date Given: Yes Hx Pneumococcal Vaccination/Date Given: No Immunizations Up to Date: Yes Travel Risk - International Travel Have you traveled outside of the country in past 3 weeks: No - Emerging Infectious Disease Are you exhibiting symptoms associated with any current EIDs: No - Review of Systems Constitutional: No Fever, No Chills Eyes: No Symptoms Ears, Nose, & Throat: No Symptoms Respiratory: No Cough, No Dyspnea Cardiac: No Chest Pain, No Edema, No Syncope Abdominal/Gastrointestinal: No Abdominal Pain, No Nausea, No Vomiting, No Diarrhea Genitourinary Symptoms: No Dysuria Musculoskeletal: Arthralgias, Joint Pain, Joint Swelling, Myalgias, No Back Pain, No Neck Pain Skin: No Rash Neurological: No Dizziness, No Focal Weakness, No Sensory Changes Psychological: No Symptoms Endocrine: No Symptoms All Other Systems: Reviewed and Negative - Past Medical History Pertinent Past Medical History: Yes Neurological History: Migraines, Other ENT History: No Pertinent History Cardiac History: Hypertension Respiratory History: No Pertinent History Endocrine Medical History: Diabetes Type II, Hypothyroidism Musculoskeletal History: Arthritis, Fibromyalgia GI Medical History: No Pertinent History History: No Pertinent History Psycho-Social History: Depression Female Reproductive Disorders: No Pertinent History Other Medical History: niyah sibley - Past Surgical History Past Surgical History: Yes Neuro Surgical History: No Pertinent History Cardiac: No Pertinent History Respiratory: No Pertinent History Gastrointestinal: Cholecystectomy Genitourinary: No Pertinent History Musculoskeletal: No Pertinent History Female Surgical History: Dilation & Curettage Other Surgical History: nose surgery - Social History Smoking Status: Never smoker Exposure to second hand smoke: No Drug Use: none Patient Lives Alone: No - Social Determinants of Health Will the patient participate in the screening: Yes Do you worry about a steady place to live?: No Do you have any problems with any of the following?: No known problems In the past 12 months,have you had to go without utilities?: No Transportation Issues: No Has anyone in your support network made you feel unsafe?: No Have you or anyone in your house had to go without enough: No - Nursing Vital Signs Nursing Vital Signs: Initial Vital Signs Temperature 97 F 02/04/24 13:58 Pulse Rate 101 H 02/04/24 13:58 Respiratory Rate 16 02/04/24 13:58 Blood Pressure 124/71 02/04/24 13:58 O2 Sat by Pulse Oximetry 94 L 02/04/24 13:58 Pain Scale Pain Intensity 6 - Physical Exam General Appearance: mild distress, alert Eyes, Ears, Nose, Throat Exam: normal ENT inspection, moist mucous membranes Neck Exam: normal inspection, non-tender, supple Cardiovascular/Respiratory Exam: chest non-tender, normal breath sounds, regular rate/rhythm, no respiratory distress Gastrointestinal/Abdominal Exam: non-tender, guarding Back Exam: normal inspection, No vertebral tenderness Legs Exam: left leg: joint effusion, limited range of motion, nodules, pain, soft tissue tenderness, swelling Knees Exam: left knee: bone tenderness, joint effusion, pain, soft tissue tenderness, swelling Neuro/Tendon Exam: normal sensation, normal motor functions Mental Status Exam: alert, oriented x 3, cooperative Skin Exam: normal color, warm, dry SpO2: 95 - Course Nursing assessment & vital signs reviewed: Yes - Radiology Ultrasound Exam Venous Lower Extremity Ultrasound: negative, Other (Reviewed by ED physician) Ordered Tests: Active Orders 24 hr Category Date Time Status LOWER LEG Stat Exams 02/04/24 14:26 Completed VENOUS UNILAT/LIMITED EXTREMIT [US] Stat Exams 02/04/24 14:25 Taken CBC W DIFF Stat Lab 02/04/24 14:45 Completed CMP Stat Lab 02/04/24 14:45 Completed Medication Summary Discontinued Medications Generic Name Dose Route Start Last Admin Trade Name Dejanq PRN Reason Stop Dose Admin Hydrocodone Bitart/Acetaminophen 1 tab 02/04/24 14:49 02/04/24 14:53 Hydrocodone/Apap 5/325 1 Tab Tablet PO 02/04/24 14:50 1 tab STAT ONE Administration Hydrocodone Bitart/Acetaminophen Confirm 02/04/24 14:53 Hydrocodone/Apap 5/325 1 Tab Tablet Administered 02/04/24 14:54 Dose 1 tab .ROUTE .STK-MED ONE Lab/Rad Data: Laboratory Result Diagrams 02/04/24 14:45 02/04/24 14:45 Laboratory Results 02/04/24 02/04/24 Range/Units 14:45 14:45 WBC 8.1 (4.0-10.5) x10^3/uL RBC 5.12 (4.1-5.4) x10^6/uL Hgb 15.2 (12.0-16.0) g/dL Hct 44.0 (35-47) % MCV 85.9 (78-100) fL MCH 29.7 (26-32) pg MCHC 34.5 (32-36) g/dL RDW 12.3 (11.5-14.0) % Plt Count 256 (150-450) x10^3/uL MPV 9.3 (7.5-11.0) fL Gran % 72.6 H (36.0-66.0) % Immature Gran % (Auto) 0.4 (0.00-0.4) % Nucleat RBC Rel Count 0.0 (0.00-0.1) % Eos # (Auto) 0.06 (0-0.5) x10^3/uL Immature Gran # (Auto) 0.03 (0.00-0.03) x10^3u/L Absolute Lymphs (auto) 1.62 (1.0-4.6) x10^3/uL Absolute Monos (auto) 0.44 (0.0-1.3) x10^3/uL Absolute Nucleated RBC 0.00 (0.00-0.01) x10^3u/L Lymphocytes % 20.1 L (24.0-44.0) % Monocytes % 5.5 (0.0-12.0) % Eosinophils % 0.7 (0.00-5.0) % Basophils % 0.7 (0.0-0.4) % Absolute Granulocytes 5.84 (1.4-6.9) x10^3/uL Basophils # 0.06 (0-0.4) x10^3/uL Sodium 135 (135-145) mmol/L Potassium 3.5 (3.5-5.1) mmol/L Chloride 97 L (98-107) mmol/L Carbon Dioxide 28 (22-30) mmol/L Anion Gap 13.6 (5-15) MEQ/L BUN 21 H (7-17) mg/dL Creatinine 0.73 (0.52-1.04) mg/dL Estimated GFR 92.9 ML/MIN Glucose 395 H (74-106) mg/dL Calcium 10.1 (8.4-10.2) mg/dL Total Bilirubin 1.00 (0.2-1.3) mg/dL AST 27 (14-36) U/L ALT 27 (0-35) U/L Alkaline Phosphatase 85 (38-126) U/L Serum Total Protein 7.7 (6.3-8.2) g/dL Albumin 4.5 (3.5-5.0) g/dL - Progress Progress: unchanged Medical Desision Making - Diagnostic Testing Diagnostic test were ordered, analyzed, and reviewed by me: Yes Radiological Interpretation: Reviewed by me - Risk of complications Low Risk: Low risk of morbidity from additional dx testing or treatment - Departure Departure Disposition: Home Clinical Impression: Muscle strain of left lower extremity Condition: Stable Critical Care Time: No Referrals: JOSÉ MIGUEL DOS SANTOS DO [Primary Care Provider] - Follow up/PCP as directed Instructions: Muscle strain, Sprain (DC), Leg Muscle Strain ED Prescriptions: Hydrocodone/Acetaminophen [Hydrocodone-Acetamin 5-325 mg] 1 tab PO Q6HPRN PRN 3 Days #12 tablet MDD 4 PRN Reason: Pain
--- NOTE | 2024-02-04 16:28 | XRAY ---
Indication: Pain and swelling. Two-dimensional sonogram and color Doppler imaging major venous vessels left leg performed. Comparison: None No thrombus seen in the examined deep venous vessels left leg including greater saphenous vein. Veins demonstrate normal compressibility. Venous waveforms are normal with and without augmentation. Impression: Left leg negative for DVT.
== END 2024-02-04 16:38 | disposition home or self-care (01) ==
LOC: ED 13:33
DX: S86.912A Strain of unspecified muscle(s) and tendon(s) at lower leg level, left leg, initial encounter (principal); I10 Essential (primary) hypertension; E11.9 Type 2 diabetes mellitus without complications; Z79.84 Long term (current) use of oral hypoglycemic drugs; Z79.899 Other long term (current) drug therapy; Z79.891 Long term (current) use of opiate analgesic
CPT/HCPCS: 36415; 73590; 80053; 85025; 93971; 99283; A9270-GY